=== PATIENT | female | born 1995 | race African-American/Black ===

== ENCOUNTER 2016-09-16 05:59 | Emergency (ER) | payer OTHER ==
[~2016-09-16] VITALS: Ht 154.9 cm; Wt 64.5 kg
[~2016-09-16 05:59] MED LIST: Feosol PO; KEFLEX500 MG PO; Motrin PO; NAPROXEN500 MG PO; ZOFRAN ODT4 MG PO
[2016-09-16 08:27] LABS: ADD MIUA? YES; BILIRUBIN NEGATIVE; BLOOD NEGATIVE; COLOR YELLOW ((YELLOW)); GLUCOSE (STRIP) NEGATIVE; KETONES 5; LEUKOCYTES TRACE; NITRITE NEGATIVE; PROTEIN (STRIP) 30; SPECIFIC GRAVITY 1.031 (1.000-1.030); UROBILINOGEN 0.2 MG/DL (0.2-1.0)
[2016-09-16 08:38] LABS: BACTERIA NONE SEEN /HPF; EPITHELIAL CELLS 1+ /HPF; MUCUS 4+ /LPF; RED BLOOD CELLS 0-5 /HPF (0-5); UCUL ADDED? NO; WHITE BLOOD CELLS 0-5 /HPF (0-5)
[2016-09-16] MEDS ORDERED: MOTRIN800 MG PO (08:55)
[2016-09-16 08:56] VITALS: BP 100/72
== END 2016-09-16 09:20 | disposition home or self-care (01) ==
LOC: EME 05:59
PROVIDERS: Emergency Medicine
DX: S39.012A Strain of muscle, fascia and tendon of lower back, initial encounter (principal); X58.XXXA Exposure to other specified factors, initial encounter
CPT/HCPCS: 72100; 81003; 94640; 99281; 99284; J1885

== ENCOUNTER 2016-12-01 14:29 | Emergency (ER) | payer OTHER ==
[~2016-12-01] VITALS: Ht 154.9 cm; Wt 60.0 kg
[~2016-12-01 14:29] MED LIST changes: +MOTRIN800 MG PO
[2016-12-01 15:57] LABS: HEMATOCRIT 39.6 % (36.0-46.0); MCH 31.4 PG (29.0-34.0); MCHC 33.8 G/DL (30.0-36.0); MCV 92.7 FL (83-99); MEAN PLAT.VOLUME 9.2 uM^3 (9.5-12.4); PLATELET COUNT 372 K/uL (156-360); RBC DIS.WIDTH-SD 40.9 % (39-53); RED BLOOD COUNT 4.27 M/uL (3.80-5.20); WHITE BLOOD COUNT 7.9 K/uL (4.1-10.2)
[2016-12-01 16:20] LABS: CHLORIDE 106 mEq/L (99-109); POTASSIUM 4.2 mEq/L (3.7-5.4); SODIUM 143 mEq/L (136-147)
[2016-12-01 16:21] LABS: GLUCOSE 94 mg/dL (70-99)
[2016-12-01 16:23] LABS: ANION GAP 10 MEQ/L (2-14)
[2016-12-01 16:25] LABS: GFR ESTIMATE (CALCULATED) > 59 mL/min/
[2016-12-01 16:26] LABS: UREA NITROGEN (BUN) 11 mg/dL (9-23)
[2016-12-01 16:31] LABS: TROP-I INTERPRETATION NEGATIVE; TROPONIN-I < 0.01 ng/mL (0.0-0.30)
[2016-12-01 17:47] VITALS: BP 121/71
== END 2016-12-01 17:58 | disposition home or self-care (01) ==
LOC: EME 14:29
PROVIDERS: Emergency Medicine
DX: R07.9 Chest pain, unspecified (principal); Z11.3 Encounter for screening for infections with a predominantly sexual mode of transmission; F17.200 Nicotine dependence, unspecified, uncomplicated
CPT/HCPCS: 71020; 80048; 84484; 85027; 93005; 99281; 99284; J0696

== ENCOUNTER 2017-01-16 02:24 | Emergency (ER) | payer OTHER ==
[~2017-01-16] VITALS: Ht 157.5 cm; Wt 64.7 kg
[2017-01-16 02:56] LABS: POINT-OF-CARE METER ID UU13113702
[2017-01-16 03:09] LABS: MCH 31.5 PG (29.0-34.0); MCHC 34.6 G/DL (30.0-36.0); MCV 91.1 FL (83-99); MEAN PLAT.VOLUME 9.2 uM^3 (9.5-12.4); PLATELET COUNT 312 K/uL (156-360); RBC DIS.WIDTH-SD 40.4 % (39-53); RED BLOOD COUNT 4.28 M/uL (3.80-5.20); WHITE BLOOD COUNT 6.7 K/uL (4.1-10.2)
[2017-01-16 03:15] LABS: ADD MIUA? NO; BILIRUBIN NEGATIVE; BLOOD NEGATIVE; COLOR COLORLESS ((YELLOW)); GLUCOSE (STRIP) NEGATIVE; KETONES NEGATIVE; LEUKOCYTES NEGATIVE; NITRITE NEGATIVE; PROTEIN (STRIP) NEGATIVE; SPECIFIC GRAVITY 1.001 (1.000-1.030); UROBILINOGEN 0.2 MG/DL (0.2-1.0)
[2017-01-16 03:24] LABS: CHLORIDE 112 mEq/L (99-109); POTASSIUM 3.4 mEq/L (3.7-5.4); SODIUM 142 mEq/L (136-147)
[2017-01-16 03:27] LABS: GLUCOSE 95 mg/dL (70-99)
[2017-01-16 03:28] LABS: ADD MEDTOX COMMENT Y; AMPHETAMINE NEGATIVE (500 ng/mL); BARBITURATES NEGATIVE (200 ng/mL); BENZODIAZEPINES NEGATIVE (150 ng/mL); COCAINE PRESUMPTIVE POSITIVE (150 ng/mL); INTERNAL CONTROLS VALID? YES; METHADONE NEGATIVE (200 ng/mL); METHAMPHETAMINE NEGATIVE (500 ng/mL); OPIATES (MORPHINE) NEGATIVE (100 ng/mL); OXYCODONE NEGATIVE (100 ng/mL); PHENCYCLIDINE PRESUMPTIVE POSITIVE (25 ng/mL); PROPOXYPHENE NEGATIVE (300 ng/mL); THC CANNABINOIDS NEGATIVE (50 ng/mL); TRICYCLIC ANTIDEPRESSANTS NEGATIVE (300 ng/mL)
[2017-01-16 03:28] LABS: ANION GAP 10 MEQ/L (2-14)
[2017-01-16 03:29] LABS: TOTAL BILIRUBIN 0.5 mg/dL (0.0-1.0)
[2017-01-16 03:30] LABS: ALKALINE PHOSPHATASE 59 IU/L (3-129); SERUM ETHYL ALCOHOL 238 mg/dL
[2017-01-16 03:31] LABS: GFR ESTIMATE (CALCULATED) > 59 mL/min/
[2017-01-16 03:32] LABS: UREA NITROGEN (BUN) 8 mg/dL (9-23)
[2017-01-16 04:05] LABS: QUANTITATIVE HCG < 4.0 MIU/ML
[2017-01-16 07:50] VITALS: BP 108/66
== END 2017-01-16 07:30 | disposition home or self-care (01) ==
LOC: EME 02:24
PROVIDERS: Emergency Medicine
DX: F10.129 Alcohol abuse with intoxication, unspecified (principal); F14.10 Cocaine abuse, uncomplicated; F16.10 Hallucinogen abuse, uncomplicated; F17.200 Nicotine dependence, unspecified, uncomplicated
CPT/HCPCS: 70450; 80053; 81003; 82948; 84702; 84999; 85027; 99281; 99285; G0480; J2310

== ENCOUNTER 2017-06-19 22:21 | Emergency (ER) | payer OTHER ==
[~2017-06-19] VITALS: Ht 157.5 cm; Wt 65.5 kg
[2017-06-19 22:58] LABS: EOSINOPHIL (%) 0.6 % (0-5); EOSINOPHIL COUNT 0.1 K/uL (0-0.3); HEMATOCRIT 37.4 % (36.0-46.0); IMMATURE GRANULOCYTE (%) 0.2 % (0.0-0.7); INSTRUMENT ABS NEUTROPHIL CT 5.5 K/uL; LYMPHOCYTE COUNT 2.2 K/uL (1.0-2.8); MCH 32.9 PG (29.0-34.0); MCHC 35.8 G/DL (30.0-36.0); MCV 91.9 FL (83-99); MEAN PLAT.VOLUME 9.1 uM^3 (9.5-12.4); MONOCYTE (%) 8.3 % (3-12); MONOCYTE COUNT 0.7 K/uL (0-0.8); NEUTROPHIL (%) 64.5 % (45-76); NEUTROPHIL COUNT 5.5 K/uL (1.8-6.4); PLATELET COUNT 311 K/uL (156-360); RBC DIS.WIDTH-CV 11.8 % (11.8-14.6); RBC DIS.WIDTH-SD 39.7 % (39-53); RED BLOOD COUNT 4.07 M/uL (3.80-5.20); WHITE BLOOD COUNT 8.5 K/uL (4.1-10.2)
[2017-06-19 23:17] LABS: CHLORIDE 107 mEq/L (99-109); POTASSIUM 4.1 mEq/L (3.7-5.4); SODIUM 135 mEq/L (136-147)
[2017-06-19 23:19] LABS: GLUCOSE 105 mg/dL (70-99)
[2017-06-19 23:20] LABS: ANION GAP 7 MEQ/L (2-14)
[2017-06-19 23:21] LABS: TOTAL BILIRUBIN 0.2 mg/dL (0.0-1.0)
[2017-06-19 23:22] LABS: SERUM ETHYL ALCOHOL < 10 mg/dL
[2017-06-19 23:23] LABS: ALKALINE PHOSPHATASE 61 IU/L (3-129); GFR ESTIMATE (CALCULATED) > 59 mL/min/
[2017-06-19 23:25] LABS: UREA NITROGEN (BUN) 10 mg/dL (9-23)
[2017-06-19 23:26] LABS: SALICYLATE < 5.0 MG/DL (15-30)
[2017-06-19 23:27] LABS: CREATINE KINASE 65 IU/L (1-294); TOTAL CK 65 IU/L (1-294)
[2017-06-19 23:36] LABS: CK-MB 0.5 ng/mL (0.0-4.9)
[2017-06-19 23:44] LABS: ADD MIUA? YES; BILIRUBIN NEGATIVE; BLOOD NEGATIVE; COLOR YELLOW ((YELLOW)); GLUCOSE (STRIP) NEGATIVE; KETONES NEGATIVE; LEUKOCYTES TRACE; NITRITE POSITIVE; PROTEIN (STRIP) NEGATIVE; SPECIFIC GRAVITY 1.014 (1.000-1.030); UROBILINOGEN 0.2 MG/DL (0.2-1.0)
[2017-06-19 23:51] LABS: BACTERIA RARE /HPF; EPITHELIAL CELLS RARE /HPF; MUCUS TRACE /LPF; RED BLOOD CELLS 0-5 /HPF (0-5); UCUL ADDED? NO; WHITE BLOOD CELLS 0-5 /HPF (0-5)
[2017-06-19 23:56] LABS: QUANTITATIVE HCG 103342.4 MIU/ML
[2017-06-20 00:04] LABS: ADD MEDTOX COMMENT Y; AMPHETAMINE NEGATIVE (500 ng/mL); BARBITURATES NEGATIVE (200 ng/mL); BENZODIAZEPINES NEGATIVE (150 ng/mL); COCAINE NEGATIVE (150 ng/mL); INTERNAL CONTROLS VALID? YES; METHADONE NEGATIVE (200 ng/mL); METHAMPHETAMINE NEGATIVE (500 ng/mL); OPIATES (MORPHINE) NEGATIVE (100 ng/mL); OXYCODONE NEGATIVE (100 ng/mL); PHENCYCLIDINE PRESUMPTIVE POSITIVE (25 ng/mL); PROPOXYPHENE NEGATIVE (300 ng/mL); THC CANNABINOIDS PRESUMPTIVE POSITIVE (50 ng/mL); TRICYCLIC ANTIDEPRESSANTS NEGATIVE (300 ng/mL)
[2017-06-20 00:22] VITALS: BP 134/87
[2017-06-20 01:11] LABS: MARIJUANA QUANT VALUE 0 NG/ML
== END 2017-06-20 00:23 ==
LOC: EME → EDBD 22:21 → EME 22:21
PROVIDERS: Emergency Medicine
DX: O99.341 Other mental disorders complicating pregnancy, first trimester (principal); F16.10 Hallucinogen abuse, uncomplicated; Z3A.01 Less than 8 weeks gestation of pregnancy; O99.331 Smoking (tobacco) complicating pregnancy, first trimester; F17.200 Nicotine dependence, unspecified, uncomplicated
CPT/HCPCS: 80053; 81003; 82550; 82553; 84702; 84999; 85025; 99281; 99284; G0480

== ENCOUNTER → 2017-08-04 | Outpatient (CLI) | payer OTHER ==
[2017-08-04 11:14] VITALS: BP 104/58
== END | disposition home or self-care (01) ==
LOC: IVINF 11:00
DX: O09.892 Supervision of other high risk pregnancies, second trimester (principal); O46.92 Antepartum hemorrhage, unspecified, second trimester; Z3A.14 14 weeks gestation of pregnancy; Z67.91 Unspecified blood type, Rh negative
CPT/HCPCS: 96372; J2790

== ENCOUNTER → 2017-11-11 | Outpatient (CLI) | payer OTHER ==
[~2017-11-11] VITALS: Ht 157.5 cm; Wt 73.4 kg
[~2017-11-11] MED LIST changes: +BENADRYL25 MG PO; +PRENATAL VITAM1 EA11 PO
[2017-11-11 10:56] VITALS: BP 117/66
== END | disposition home or self-care (01) ==
LOC: IVINF 11-09 09:00
DX: O09.899 Supervision of other high risk pregnancies, unspecified trimester (principal); Z3A.00 Weeks of gestation of pregnancy not specified; Z67.91 Unspecified blood type, Rh negative
CPT/HCPCS: 96372; J2790

== ENCOUNTER 2017-11-17 09:08 | Emergency (ER) | payer OTHER ==
[~2017-11-17] VITALS: Ht 157.5 cm; Wt 7.0 kg
[2017-11-17 10:20] VITALS: BP 118/65
== END 2017-11-17 10:20 | disposition home or self-care (01) ==
LOC: EME 09:08
DX: G56.11 Other lesions of median nerve, right upper limb (principal); M25.531 Pain in right wrist; F17.200 Nicotine dependence, unspecified, uncomplicated
CPT/HCPCS: 99281; 99283

== ENCOUNTER 2017-12-13 21:57 | Outpatient (CLI) | payer OTHER ==
[~2017-12-13] VITALS: Ht 154.9 cm; Wt 77.1 kg
[2017-12-13 22:49] LABS: BASOPHIL (%) 0.3 % (0-1); EOSINOPHIL (%) 0.9 % (0-5); EOSINOPHIL COUNT 0.1 K/uL (0-0.3); HEMATOCRIT 27.5 % (36.0-46.0); HEMOGLOBIN 9.7 G/DL (11.9-15.5); IMMATURE GRANULOCYTE (%) 0.3 % (0.0-0.7); LYMPHOCYTE (%) 13.1 % (15-42); MCH 31.9 PG (29.0-34.0); MCHC 35.3 G/DL (30.0-36.0); MCV 90.5 FL (83-99); MONOCYTE (%) 12.5 % (3-12); NEUTROPHIL (%) 72.9 % (45-76); NEUTROPHIL COUNT 5.7 K/uL (1.8-6.4); PLATELET COUNT 340 K/uL (156-360); RBC DIS.WIDTH-CV 12.2 % (11.8-14.6); RBC DIS.WIDTH-SD 39.9 % (39-53); RED BLOOD COUNT 3.04 M/uL (3.80-5.20); WHITE BLOOD COUNT 7.8 K/uL (4.1-10.2)
[2017-12-13 22:58] LABS: ALBUMIN 3.3 g/dL (3.2-4.8); CHLORIDE 103 mEq/L (99-109); POTASSIUM 3.6 mEq/L (3.7-5.4); SODIUM 135 mEq/L (136-147)
[2017-12-13 23:00] LABS: GLUCOSE 78 mg/dL (70-99)
[2017-12-13 23:01] LABS: TOTAL PROTEIN 6.3 g/dL (6.4-8.3)
[2017-12-13 23:02] LABS: TOTAL BILIRUBIN 0.6 mg/dL (0.0-1.0)
[2017-12-13 23:04] LABS: ALKALINE PHOSPHATASE 122 IU/L (3-129); CREATININE 0.6 mg/dL (0.6-1.3); GFR ESTIMATE (CALCULATED) > 59 mL/min/
[2017-12-13 23:05] LABS: UREA NITROGEN (BUN) 5 mg/dL (9-23)
[2017-12-13 23:06] LABS: AST (GOT) 19 IU/L (2-34)
[2017-12-13 23:07] LABS: ALT (GPT) 13 IU/L (3-49)
[2017-12-14] VITALS (8 sets, daily range): BP systolic 100–119; BP diastolic 49–62
[2017-12-14] MEDS ORDERED: BUSPAR5 MG PO (00:20)
[2017-12-14] MEDS ORDERED: PRENATABS RX T1 EACH PO (00:21)
[2017-12-14] MEDS ORDERED: TERCONAZOLE45 GM VG (00:22)
[2017-12-14] MEDS ORDERED: MAKENA250 MG/1 M IM (00:52)
[2017-12-14] MEDS ORDERED: ASPIRIN81 M2 PO (01:20)
[2017-12-14 02:10] LABS: AMPHETAMINE NEGATIVE (500 ng/mL); BARBITURATES NEGATIVE (200 ng/mL); BENZODIAZEPINES NEGATIVE (150 ng/mL); BUPRENORPHINE NEGATIVE (10 ng/mL); COCAINE NEGATIVE (150 ng/mL); METHADONE NEGATIVE (200 ng/mL); METHAMPHETAMINE NEGATIVE (500 ng/mL); OPIATES (MORPHINE) NEGATIVE (100 ng/mL); OXYCODONE NEGATIVE (100 ng/mL); PHENCYCLIDINE PRESUMPTIVE POSITIVE (25 ng/mL); PROPOXYPHENE NEGATIVE (300 ng/mL); THC CANNABINOIDS NEGATIVE (50 ng/mL); TRICYCLIC ANTIDEPRESSANTS NEGATIVE (300 ng/mL)
[2017-12-14 02:15] LABS: APPEARANCE SL.HAZY ((CLEAR)); BILIRUBIN NEGATIVE; BLOOD NEGATIVE; COLOR YELLOW ((YELLOW)); GLUCOSE (STRIP) NEGATIVE; KETONES 80; LEUKOCYTES NEGATIVE; NITRITE NEGATIVE; PROTEIN (STRIP) NEGATIVE; SPECIFIC GRAVITY 1.026 (1.000-1.030)
[2017-12-14 02:19] LABS: BACTERIA NONE SEEN /HPF; EPITHELIAL CELLS RARE /HPF; MUCUS 2+ /LPF; RED BLOOD CELLS 0-5 /HPF (0-5); WHITE BLOOD CELLS 0-5 /HPF (0-5)
== END 2017-12-14 07:00 | disposition home or self-care (01) ==
LOC: RME 21:57 → EME 21:57 → LDRP-OP 21:57 → CANRESERV 23:58 → ENRESERV 23:58 → RME 12-14 00:27 → 2WEST 12-14 00:39
PROVIDERS: Nurse Practitioner Family; Obstetrics & Gynecology
DX: O60.03 Preterm labor without delivery, third trimester (principal); Z3A.33 33 weeks gestation of pregnancy; O99.89 Other specified diseases and conditions complicating pregnancy, childbirth and the puerperium; R11.2 Nausea with vomiting, unspecified; R19.7 Diarrhea, unspecified; O99.333 Smoking (tobacco) complicating pregnancy, third trimester; F17.200 Nicotine dependence, unspecified, uncomplicated; O99.343 Other mental disorders complicating pregnancy, third trimester; F41.9 Anxiety disorder, unspecified; F32.9 Major depressive disorder, single episode, unspecified
CPT/HCPCS: 59025; 80053; 81003; 84999; 85025; 99281; 99285; G0378; J2405; J3105; J7030; J7120

== ENCOUNTER 2018-01-26 21:30 | Inpatient (IN) | payer OTHER ==
[~2018-01-26] VITALS: Ht 157.5 cm; Wt 80.9 kg
[~2018-01-26 21:30] MED LIST changes: +ASPIRIN81 M2 PO; +BUSPAR5 MG PO; +MAKENA250 MG/1 M IM; +PRENATABS RX T1 EACH PO; +TERCONAZOLE45 GM VG
[2018-01-26 21:48] VITALS: BP 136/73
[2018-01-26 22:55] VITALS: BP 132/64
[2018-01-26 22:56] LABS: BASOPHIL (%) 0.3 % (0-1); EOSINOPHIL (%) 0.4 % (0-5); HEMATOCRIT 31.3 % (36.0-46.0); HEMOGLOBIN 10.6 G/DL (11.9-15.5); IMMATURE GRANULOCYTE (%) 0.4 % (0.0-0.7); LYMPHOCYTE (%) 23.4 % (15-42); LYMPHOCYTE COUNT 2.5 K/uL (1.0-2.8); MCH 30.5 PG (29.0-34.0); MCHC 33.9 G/DL (30.0-36.0); MCV 89.9 FL (83-99); MONOCYTE (%) 9.7 % (3-12); NEUTROPHIL (%) 65.8 % (45-76); NEUTROPHIL COUNT 6.9 K/uL (1.8-6.4); PLATELET COUNT 387 K/uL (156-360); RBC DIS.WIDTH-CV 13.2 % (11.8-14.6); RBC DIS.WIDTH-SD 43.1 % (39-53); RED BLOOD COUNT 3.48 M/uL (3.80-5.20); WHITE BLOOD COUNT 10.5 K/uL (4.1-10.2)
[2018-01-26 23:10] VITALS: BP 126/61
[2018-01-26 23:25] VITALS: BP 129/75
[2018-01-26 23:40] VITALS: BP 137/73
[2018-01-27 00:40] VITALS: BP 137/61
[2018-01-27 01:43] VITALS: BP 136/72
[2018-01-27 01:52] LABS: AMPHETAMINE NEGATIVE (500 ng/mL); BARBITURATES NEGATIVE (200 ng/mL); BENZODIAZEPINES NEGATIVE (150 ng/mL); BUPRENORPHINE NEGATIVE (10 ng/mL); COCAINE NEGATIVE (150 ng/mL); METHADONE NEGATIVE (200 ng/mL); METHAMPHETAMINE NEGATIVE (500 ng/mL); OPIATES (MORPHINE) NEGATIVE (100 ng/mL); OXYCODONE NEGATIVE (100 ng/mL); PHENCYCLIDINE PRESUMPTIVE POSITIVE (25 ng/mL); PROPOXYPHENE NEGATIVE (300 ng/mL); THC CANNABINOIDS NEGATIVE (50 ng/mL); TRICYCLIC ANTIDEPRESSANTS NEGATIVE (300 ng/mL)
[2018-01-27 06:31] LABS: BASOPHIL (%) 0.2 % (0-1); EOSINOPHIL (%) 0.2 % (0-5); HEMATOCRIT 29.6 % (36.0-46.0); IMMATURE GRANULOCYTE (%) 0.3 % (0.0-0.7); LYMPHOCYTE (%) 14.2 % (15-42); LYMPHOCYTE COUNT 1.9 K/uL (1.0-2.8); MCH 30.1 PG (29.0-34.0); MCHC 33.8 G/DL (30.0-36.0); MCV 89.2 FL (83-99); MONOCYTE (%) 9.8 % (3-12); MONOCYTE COUNT 1.3 K/uL (0-0.8); NEUTROPHIL (%) 75.3 % (45-76); PLATELET COUNT 308 K/uL (156-360); RBC DIS.WIDTH-CV 13.2 % (11.8-14.6); RED BLOOD COUNT 3.32 M/uL (3.80-5.20); WHITE BLOOD COUNT 13.2 K/uL (4.1-10.2)
[2018-01-27 07:54] VITALS: BP 130/77
[2018-01-27 14:40] VITALS: BP 108/58
[2018-01-27 23:14] VITALS: BP 104/53
[2018-01-28 08:02] VITALS: BP 122/60
== END 2018-01-28 12:10 | disposition home or self-care (01) | DRG 775 ==
LOC: LDRP-OP → 2WEST 21:43 → LDRP-OP 03-04 10:42
PROVIDERS: Advanced Practice Midwife
DX: O99.344 Other mental disorders complicating childbirth (principal); F32.9 Major depressive disorder, single episode, unspecified; F41.9 Anxiety disorder, unspecified; E66.3 Overweight; O70.0 First degree perineal laceration during delivery; O99.02 Anemia complicating childbirth; D62 Acute posthemorrhagic anemia; O76 Abnormality in fetal heart rate and rhythm complicating labor and delivery; O99.324 Drug use complicating childbirth; F16.90 Hallucinogen use, unspecified, uncomplicated; O62.3 Precipitate labor; Z3A.39 39 weeks gestation of pregnancy; Z37.0 Single live birth; Z68.32 Body mass index [BMI] 32.0-32.9, adult
CPT/HCPCS: 83030; 84999; 85025; 86850; 86900; 86901; J2790; J7120